=== PATIENT | female | born 2000 | race Hispanic/Latino ===

== ENCOUNTER 2018-07-15 16:09 | Emergency (ER) | payer SELFPAY ==
[2018-07-15] MEDS ORDERED: ACETAMINOPHEN EXTRA STRENGTH 500 MG TABLET ONE (17:26)
== END 2018-07-15 18:04 | disposition home or self-care (01) ==
LOC: EDH 16:09 → EDBD 16:09 → EDH 18:04
DX: S83.411A Sprain of medial collateral ligament of right knee, initial encounter (principal); W54.1XXA Struck by dog, initial encounter; Y93.89 Activity, other specified; Y92.89 Other specified places as the place of occurrence of the external cause; Y99.8 Other external cause status
CPT/HCPCS: 73560

== ENCOUNTER 2022-02-28 03:35 | Inpatient (IN) | payer MEDICAID, OTHER ==
[~2022-02-28] VITALS: Ht 160 cm; Wt 63.5 kg
[2022-02-28 04:30] LABS: APPEARANCE,URINE CLOUDY (CLEAR); BILIRUBIN,URINE NEGATIVE (NEGATIVE); COLOR,URINE LIGHT-BROWN (YELLOW); GLUCOSE, URINE (UA) NEGATIVE (NEGATIVE); KETONES,URINE NEGATIVE (NEGATIVE); LEUKOCYTE ESTERASE ,URINE 25 Leu/uL (NEGATIVE); NITRATE,URINE NEGATIVE (NEGATIVE); OCCULT BLOOD,URINE LARGE (NEGATIVE); PH,URINE 6.5 (5.0-8.0); PROTEIN,URINE 20 mg/dL (NEGATIVE); UROBILINOGEN,URINE 0.2 mg/dL (0.2-1.0)
[2022-02-28 04:38] LABS: AMPHET/METH SCREEN,URINE NEGATIVE (NEGATIVE); BARBITURATE SCREEN, URINE NEGATIVE (NEGATIVE); BENZODIAZEPINES SCREEN,URINE NEGATIVE (NEGATIVE); CANNABINOID SCREEN,URINE NEGATIVE (NEGATIVE); COCAINE SCREEN,URINE NEGATIVE (NEGATIVE); OPIATE SCREEN,URINE NEGATIVE (NEGATIVE); PHENCYCLIDINE SCREEN,URINE NEGATIVE (NEGATIVE)
[2022-02-28 04:47] LABS: HEMATOCRIT 39.2 % (36-48); MEAN CORPUSCULAR HGB CONC 35.2 g/dL (32.0-36.0); MEAN CORPUSCULAR VOLUME 93.8 fL (79-99); RED BLOOD CELL COUNT(AUTO) 4.18 MIL/uL (4.00-5.50); RED CELL DISTRIBUTION WIDTH 13.1 % (11.0-15.5); WHITE BLOOD COUNT (AUTO) 9.6 K/uL (4.8-10.8)
[2022-02-28 04:56] LABS: MUCUS,URINE RARE LPF (None Seen); RBC,URINE TNTC /HPF (0-1); SQUAMOUS EPITHELIAL CELL,UR RARE /HPF (0-2); WBC,URINE 51-100 /HPF (0-1)
[2022-02-28] MEDS ORDERED: LACTATED RINGERS 1000ML 1,000 ML IV PRN (05:00)
[2022-02-28] MEDS ORDERED: MAGNESIUM 4GM PREMIX 100ML 100 ML IV ONE (05:12)
[2022-02-28] MEDS ORDERED: MAGNESIUM SULFATE 40GM/1000ML 1,000 ML IV ONE (05:13)
[2022-02-28] MEDS: LACTATED RINGERS 1000ML 1,000 ML IV SCH ×2 (05:19→10:05)
[2022-02-28] MEDS: CELESTONE SOLUSPAN 6 MG/ML 5ML VIAL IM SCH (05:29)
[2022-02-28] MEDS ORDERED: MAGNESIUM 4GM PREMIX 100ML 100 ML IV SCH (05:30)
[2022-02-28] MEDS ORDERED: CALCIUM GLUC 1GM/10ML VIAL IV PRN (05:30)
[2022-02-28] MEDS: MAGNESIUM SULFATE 40GM/1000ML 1,000 ML IV PRN ×2 (05:46→16:05)
[2022-02-28] MEDS ORDERED: AMPICILLIN 2GM+NS 100ML 100 ML IV SCH (08:30)
[2022-02-28] MEDS ORDERED: INDOMETHACIN 25 MG CAP PO SCH (09:30)
[2022-02-28 10:34] LABS: RAPID PLASMA REAGIN NONREACTIVE (NONREACTIVE)
[2022-02-28] MEDS: AMPICILLIN 1GM+NS 50ML 50 ML IV SCH ×3 (13:11→20:31)
[2022-02-28] MEDS: INDOMETHACIN 25 MG CAP PO SCH ×2 (16:03→21:42)
[2022-02-28] MEDS ORDERED: PORACTANT ALFA 120 MG/1.5 ML VIAL IH ONE (20:38)
[2022-03-01] MEDS ORDERED: ZOLPIDEM TARTRATE 5 MG TAB PO ONE (00:30)
[2022-03-01] MEDS: AMPICILLIN 1GM+NS 50ML 50 ML IV SCH ×6 (00:35→21:02)
[2022-03-01] MEDS: INDOMETHACIN 25 MG CAP PO SCH ×4 (04:02→21:54)
[2022-03-01] MEDS: CELESTONE SOLUSPAN 6 MG/ML 5ML VIAL IM SCH (05:32)
[2022-03-01] MEDS ORDERED: MAGNESIUM SULFATE 40GM/1000ML 1,000 ML IV ONE (07:16)
[2022-03-01] MEDS: LACTATED RINGERS 1000ML 1,000 ML IV SCH ×3 (10:08→21:00)
[2022-03-02] MEDS: AMPICILLIN 1GM+NS 50ML 50 ML IV SCH ×7 (00:52→21:00)
[2022-03-02] MEDS: MAGNESIUM SULFATE 40GM/1000ML 1,000 ML IV PRN ×2 (03:01→23:07)
[2022-03-02] MEDS: INDOMETHACIN 25 MG CAP PO SCH ×4 (03:41→22:12)
[2022-03-02] MEDS: LACTATED RINGERS 1000ML 1,000 ML IV SCH ×4 (05:00→21:00)
[2022-03-02] MEDS: CELESTONE SOLUSPAN 6 MG/ML 5ML VIAL IM SCH (05:30)
[2022-03-02] MEDS ORDERED: SIMETHICONE 80 MG TAB.CHEW ONE (19:26)
[2022-03-02 19:30] VITALS: BP 100/88
[2022-03-02] MEDS ORDERED: FAMOTIDINE 20MG VIAL IV ONE (20:30)
[2022-03-02] MEDS ORDERED: ACETAMINOPHEN 325 MG TAB PO PRN (20:30)
[2022-03-02] MEDS ORDERED: FAMOTIDINE 20MG TAB ONE (20:52)
[2022-03-02] MEDS: SIMETHICONE 80 MG TAB.CHEW PO SCH (21:00)
[2022-03-03] MEDS: AMPICILLIN 1GM+NS 50ML 50 ML IV SCH ×3 (00:45→08:59)
[2022-03-03] MEDS: INDOMETHACIN 25 MG CAP PO SCH ×2 (03:46→10:00)
[2022-03-03] MEDS: LACTATED RINGERS 1000ML 1,000 ML IV SCH ×2 (05:00→13:00)
[2022-03-03] MEDS: FAMOTIDINE 20MG TAB PO SCH (09:00)
[2022-03-03] MEDS: SIMETHICONE 80 MG TAB.CHEW PO SCH ×4 (09:00→21:56)
[2022-03-03] MEDS ORDERED: CEFAZOLIN SODIUM 1 GM VIAL ONE (11:04)
[2022-03-03] MEDS ORDERED: CALDOLOR 800MG+NS 250ML 250 ML IV ONE (11:05)
[2022-03-03] MEDS ORDERED: MORPHINE PF 100MG/10ML AMP IV ONE (11:14)
[2022-03-03] MEDS ORDERED: EPINEPHRINE PF 1MG (1:1,000) 1 MG/ML AMP ONE (11:15)
[2022-03-03] MEDS ORDERED: ONDANSETRON 4MG INJ ONE (11:17)
[2022-03-03] MEDS ORDERED: LANOLIN 30GM OINTMENT TP PRN (11:30)
[2022-03-03] MEDS ORDERED: HYDROCODONE/ACETAMINOPHEN 5/325 MG TAB PO PRN (11:30)
[2022-03-03] MEDS ORDERED: ACETAMINOPHEN WITH CODEINE 1 TAB TAB PO PRN (11:30)
[2022-03-03] MEDS ORDERED: CEFAZOLIN SODIUM 1 GM VIAL IVP PRN (11:30)
[2022-03-03] MEDS ORDERED: MEPERIDINE-PF 75 MG/ML SYG IM PRN (11:30)
[2022-03-03] MEDS ORDERED: OXYTOCIN-LR 20 UNITS/1000 ML 1,000 ML IV PRN (11:30)
[2022-03-03] MEDS ORDERED: DIPHENHYDRAMINE HCL 25 MG CAPSULE PO PRN (11:30)
[2022-03-03] MEDS ORDERED: CALDOLOR 800MG+NS 250ML 250 ML IV PRN (11:30)
[2022-03-03] MEDS ORDERED: 0.9%NACL 10ML VIAL IVP PRN (11:30)
[2022-03-03] MEDS ORDERED: MEASLES/MUMPS/RUBELLA VACCINE, LIVE 0.5 ML/VIAL SQ SCH (11:30)
[2022-03-03] MEDS: IBUPROFEN 800 MG TAB PO SCH ×2 (11:30→19:30)
[2022-03-03] MEDS ORDERED: PROMETHAZINE HCL 25 MG/ML 1ML AMPULE IM PRN (11:30)
[2022-03-03] MEDS ORDERED: BISACODYL 10 MG SUPP.RECT RC PRN (11:30)
[2022-03-03] MEDS ORDERED: DIPH,PERTUSS(ACELL),TET VAC/PF 0.5 ML VIAL IM SCH (11:30)
[2022-03-03] MEDS ORDERED: ACETAMINOPHEN 500 MG TABLET PO PRN (11:30)
[2022-03-03] MEDS ORDERED: CEFAZOLIN SODIUM 2 GM VIAL IVPB ONE (11:39)
[2022-03-03] MEDS ORDERED: OXYTOCIN 10 USP UNITS/ML ONE (11:53)
[2022-03-03] MEDS ORDERED: NALOXONE HCL 0.4 MG/1 ML ML IVP PRN ×3 (15:00)
[2022-03-03] MEDS ORDERED: EPHEDRINE SULFATE 50 MG/ML AMPULE IVP PRN (15:00)
[2022-03-03] MEDS ORDERED: ONDANSETRON 4MG INJ IVP PRN (15:00)
[2022-03-03] MEDS ORDERED: DiphenhydrAMINE HCL 50 MG/ML VIAL IVP PRN (15:00)
[2022-03-03 16:05] VITALS: BP 124/89
[2022-03-03] MEDS ORDERED: PREN1TAB26 PO (19:46)
[2022-03-03 19:50] VITALS: BP 109/58
[2022-03-03] MEDS: DEXTROSE 5 %-0.45 % NACL 1,000 ML IV PRN (21:56)
[2022-03-03] MEDS: CALDOLOR 800MG+NS 250ML 250 ML IV SCH (21:56)
[2022-03-03] MEDS: DOCUSATE SODIUM 100 MG CAP PO SCH (21:56)
[2022-03-03 23:09] VITALS: BP 97/53
[2022-03-04] MEDS: IBUPROFEN 800 MG TAB PO SCH ×2 (03:30→13:33)
[2022-03-04 03:39] VITALS: BP 106/57
[2022-03-04] MEDS: CALDOLOR 800MG+NS 250ML 250 ML IV SCH (05:12)
[2022-03-04] MEDS: DEXTROSE 5 %-0.45 % NACL 1,000 ML IV PRN (06:33)
[2022-03-04 07:27] VITALS: BP 113/60
[2022-03-04] MEDS: SIMETHICONE 80 MG TAB.CHEW PO SCH ×2 (09:00→13:00)
[2022-03-04] MEDS ORDERED: LIDOCAINE 5% TOPICAL PATCH TP SCH (09:00)
[2022-03-04] MEDS: SIMETHICONE 80 MG TAB.CHEW PO PRN ×2 (09:06→13:31)
[2022-03-04] MEDS: FAMOTIDINE 20MG TAB PO SCH (09:06)
[2022-03-04] MEDS: DOCUSATE SODIUM 100 MG CAP PO SCH (09:06)
[2022-03-04 11:31] VITALS: BP 125/50
[2022-03-04] MEDS ORDERED: DOCU-116 PO (14:06)
[2022-03-04] MEDS ORDERED: IBUP-1493 PO (14:07)
== END 2022-03-04 15:00 | disposition home or self-care (01) | DRG 786 ==
LOC: EDH 03:35 → LDH 03:46 → OBSVTOIN 03:46 → WSH 03-03 18:46
PROVIDERS: ADMIT Obstetrics & Gynecology; ATTEND Obstetrics & Gynecology
PROC: 10D00Z0 Extraction of Products of Conception, High, Open Approach (ICD-10-PCS; principal; 2022-03-03 11:30)
DX: O32.8XX0 Maternal care for other malpresentation of fetus, not applicable or unspecified (principal); O60.12X0 Preterm labor second trimester with preterm delivery second trimester, not applicable or unspecified; Z3A.23 23 weeks gestation of pregnancy; Z37.0 Single live birth
CPT/HCPCS: 36415; 59510; 76805; 80305; 81001; 83735; 85027; 86592; 86701; 86850; 86900; 86901; 87088; 87340; 87390; A4314; A4344; G0378; J0171; J0290; J0690; J0702; J1741; J2274; J2405; J2590; J3475; J3490; J7120